=== PATIENT | female | born 1955 | race Caucasian/White ===

== ENCOUNTER 2021-09-19 10:40 | Emergency (ER) | payer MEDICARE, OTHER, SELFPAY ==
[2021-09-19] VITALS (12 sets, daily range): BP systolic 107–150; BP diastolic 72–92; PULSE 87–105; RESP 12–25; TEMP 36.2; O2SAT 93–98
--- NOTE | ~2021-09-19 | CT_ITS ---
EXAMINATION: CTA chest PE protocol DATE: 09/19/2021 12:25 INDICATION: Shortness of breath TECHNIQUE: Computed tomography angiography (CTA) of the chest was performed with 100 mL Omnipaque-350 intravenous contrast timed to evaluate the pulmonary arteries. Coronal maximum intensity projection 3D-reconstructions were created by the technologist. The dose-length product (DLP) was 517.22 mGy-cm. Automated exposure control and iterative reconstruction technique were employed. COMPARISON: None. FINDINGS: The pulmonary arteries are well-opacified. No pulmonary embolism is identified. There is mi ld dependent atelectasis. The lungs are free of focal airspace opacities. There is no pleural effusio n or pneumothorax. Calcified pulmonary nodules and calcified right hilar lymph nodes are consistent w ith old granulomatous disease. The heart size is normal. There are no pathologically enlarged thoraci c lymph nodes. There is a small pericardial effusion. There is cirrhosis of the liver. IMPRESSION: 1. No pulmonary embolism or acute cardiopulmonary abnormality. 2. Cirrhosis. Reviewed, dictated and finalized at location A.
--- NOTE | ~2021-09-19 | XR_ITS ---
XR chest 1V portable DATE: 09/19/2021 11:00 INDICATION: Chest pain, dyspnea. Bronchitis. Controlled hypertension. TECHNIQUE: Portable upright AP chest on 09/19/2021 at 1057 hours COMPARISON: None FINDINGS: Normal heart size. Mild aortic unfolding. No hilar or mediastinal enlargement. No pulmonary infiltrate or consolidation, pleural effusion or pulmonary vascular congestion or pneumo thorax. Neurostimulator lead overlies the lower thoracic spinal canal. Reverse left glenohumeral joint replacement. IMPRESSION: No active cardiopulmonary disease Reviewed, dictated and finalized at location B.
--- NOTE | 2021-09-19 10:41 | ECG_ITS ---
Measurements Intervals [place] Rate: 99 P: 23 OR: 157 QRS: -81 QRSD: 139 T: 16 QT: 385 QTc: 494 Interpretive Statements SINUS RHYTHM RIGHT BUNDLE BRANCH BLOCK LEFT ANTERIOR FASCICULAR BLOCK ABNORMAL ECG Electronically Signed On 09-19-2021 12:43:19 CDT by Jong Fernandez D.O.
--- NOTE | 2021-09-19 11:03 | ED.DIZZY ---
HPI - Dizziness General Chief Complaint: Dizziness Stated Complaint: dizzy, diaphoretic Source: patient Mode of arrival: EMS Limitations: no limitations History of Present Illness HPI Narrative: 66 y/o female presents to the ER today by EMS after having an episode at home of diaphoresis, lightheadedness and chest tightness. She had just got home from the grocery store and was bringing groceries in. She called her friend and they called EMS for her. She felt like she was going to pass out but she never did. She is feeling better now. The lightheadedness and chest tightness is better. No further sweating. She had some nausea and abdominal cramping when it came on but this is better now. She has a history of COPD and asthma. She has had a cough since Friday and saw her PCP on Friday. He started her on zithromax. She continues to have cough and reports yellow mucous. She has chronic shortness of breath. She says this is a little worse right now. No fever or chills. She does not usually come to this hospital for her care so we don't have any previous comparison studies such as EKG. Related Data Allergies Allergy/AdvReac Type Severity Reaction Status Date / Time morphine Allergy Nausea and Verified 09/19/21 10:40 Vomiting terfenadine Allergy Gastrointestinal Verified 09/19/21 10:40 Upset tetracycline Allergy Nausea and Verified 09/19/21 10:40 Vomiting vancomycin Allergy Nausea and Verified 09/19/21 10:40 Vomiting SURGICAL TAPE Allergy Nausea and Uncoded 09/19/21 10:40 Vomiting Review of Systems Constitutional: Constitutional: Denies chills, Denies fatigue and Denies fever(s) Eyes: Eyes: Denies change in vision ENT: Denies dysphagia, Reports dizziness, Denies nasal congestion and Denies sore throat Cardiovascular: Cardiovascular: Reports as per HPI, Denies rapid heart rate, Denies radiating jaw, neck or arm pain and Denies slow heart rate Respiratory: Respiratory: Reports chest congestion, Reports cough, Reports dyspnea and Denies wheezing Gastrointestinal: Gastrointestinal: Reports as per HPI, Denies constipation, Denies diarrhea, Reports nausea and Denies vomiting Genitourinary: Genitourinary: Denies nocturia, Denies dysuria and Denies flank pain Musculoskeletal: Musculoskeletal: Denies back pain Integumentary/Breasts: Skin/Breast: Denies rash Neurologic: Denies dizziness and Denies headache(s) Psychiatric: Psychiatric: Denies anxiety Endocrine: Endocrine: Denies fatigue Hematologic/Lymphatic: Hematologic/Lymphatic: Reports no additional hematologic/lymphatic complaints Allergic/Immunologic: Allergic/Immunologic: Reports no additional allergic/immunologic complaints [facility] Past Medical History Medical History Arthritis Asthma COPD (chronic obstructive pulmonary disease) Diabetes type 2, controlled GERD (gastroesophageal reflux disease) Hyperlipidemia Hypertension Hypothyroid Exam Const: General: healthy appearing and alert Orientation/consciousness: patient oriented x3 HENMT: Head: normal to inspection Eyes: Conjunctivae: conjunctivae normal Neck: Neck: normal visual inspection Chest: Chest palpation & inspection: normal inspection of the chest Resp: Effort & Inspection: normal respiratory effort Auscultation: clear to auscultation bilaterally Cardio: Rate: regular rate Rhythm: regular rhythm GI: GI Palp: Yes Soft to palpation, No Tenderness to palpation present (GI) and No Guarding due to palpation present (GI) Auscultation: normal bowel sounds : General: Yes no CVA tenderness Back/Spine/Pelvis: Back: no CVA tenderness Skin: General skin exam: normal color Neuro: General: patient oriented x3, moves all extremities, no focal motor deficits and CN's II-XI intact bilaterally Speech: normal speech Extrem: General: normal to inspection and no edema Psych: Mental Status: mental status grossly normal A
[2021-09-19 11:24] LABS: Basophils Absolute Auto 0.1 K/mm3 (0.0-0.1); Basophils Percent Auto 0.6 % (0.2-1.2); Eosinophils Absolute Auto 0.3 K/mm3 (0-0.3); Eosinophils Percent Auto 2.9 % (0-4.4); Hematocrit 41.4 % (37.0-47.0); Hemoglobin 13.5 g/dL (12.0-15.0); Immature Granulocyte Absolute 0.06 K/mm3 (0.00-0.031); Immature Granulocyte Percent A 0.7 % (0-0.5); Lymphocytes Percent Auto 19.5 % (18.3-44.2); Mean Corpuscular HGB Conc 32.6 g/dl (32-36); Mean Corpuscular Hemoglobin 29.2 pg (26-34); Mean Corpuscular Volume 89.4 fl (80-100); Mean Platelet Volume 10.9 fl (7.4-10.4); Monocytes Absolute Auto 0.6 K/mm3 (0.1-0.6); Neutrophils Percent Auto 69.3 % (45.5-73.1); Platelet Count Result 224 k/mm3 (150-375); Red Blood Count 4.63 M/mm3 (4.2-5.4); Red Cell Distribution Width 13.3 % (11.5-14.5); White Blood Count 8.7 K/mm3 (4.5-10.0)
[2021-09-19 11:33] LABS: Alanine Aminotransferase 30 U/L (6-35); Albumin Level 4.1 g/dL (3.5-5.1); Alkaline Phosphatase 113 U/L (38-126); Anion Gap 13 mmol/L (8-16); Aspartate Amino Transferase 34 U/L (14-36); Bilirubin,Total 1.2 mg/dL (0.2-1.3); Blood Urea Nitrogen 9 mg/dL (7-17); Calcium 8.7 mg/dL (8.4-10.2); Carbon Dioxide 18 mmol/L (22-30); Chloride 109 mmol/L (98-107); Estimated CRCL calculation 48 ml/min; Estimated Glomerular Filt Rate 55; Glucose 310 mg/dL (65-110); Lipase 49 U/L (23-300); Potassium 3.6 mmol/L (3.4-5.0); Sodium 140 mmol/L (137-145)
[2021-09-19 11:34] LABS: INR 1.1; Prothrombin Time 13.3 Seconds (11.1-14.7)
[2021-09-19 11:42] LABS: NT Pro B Type Natriuretic Pept 45 pg/mL (5-100)
[2021-09-19 11:45] LABS: Troponin I < 0.012 ng/mL (0.000-0.034)
[2021-09-19 12:06] LABS: Partial Thromboplastin Time < 20.0 SECONDS (22.3-36.8)
[2021-09-19 13:47] LABS: Appearance Urine Clear (Clear); Bilirubin Urine Negative (Negative); Blood Urine Negative (Negative); Color Urine Yellow (Yellow); Glucose Urine UA Trace mg/dL (Negative); Ketones Urine Negative (Negative); Leukocyte Esterase Ur Negative LEU/UL (Negative); Nitrate Urine Negative (Negative); Protein Urine 1+ mg/dL (Negative); Urobilinogen Urine 0.2 mg/dL (<2.0); pH Urine 5.5 (5.0-9.0)
[2021-09-19 13:53] LABS: Mucus Urine Moderate /lpf; Squamous Epithelial Cell Urine Rare /hpf (Few); WBC Urine 0-3 /hpf
[2021-09-19 13:55] LABS: Add Urine Microscopic? YES
[2021-09-19 14:10] LABS: Troponin I 0.019 ng/mL (0.000-0.034)
== END 2021-09-19 15:10 | disposition home or self-care (01) ==
PROVIDERS: Emergency Provider Nurse Practitioner Family; PCP Internal Medicine
DX: R55 Syncope and collapse (principal); J44.9 Chronic obstructive pulmonary disease, unspecified; E11.9 Type 2 diabetes mellitus without complications; K21.9 Gastro-esophageal reflux disease without esophagitis; E78.5 Hyperlipidemia, unspecified; I10 Essential (primary) hypertension; E03.9 Hypothyroidism, unspecified; M19.90 Unspecified osteoarthritis, unspecified site; K74.60 Unspecified cirrhosis of liver; I45.2 Bifascicular block; R06.02 Shortness of breath
CPT/HCPCS: 36415; 51701; 71045; 71275; 80053; 81001; 83690; 83880; 84484; 85025; 85380; 85610; 85730; 93005; 99284; Q9967